=== PATIENT | female | born 1975 | race African-American/Black ===

== ENCOUNTER 2024-10-31 09:06 | Emergency (ER) | payer OTHER ==
[~2024-10-31] VITALS: Ht 162.6 cm; Wt 50.3 kg
[2024-10-31] MEDS: Magnesium 1GM/D5W 100ML PREMIX 100 ML IV SCH (10:00)
[2024-10-31] MEDS: PANTOPRAZOLE 40 MG VIAL IV ONE (10:00)
[2024-10-31] MEDS ORDERED: PANTOPRAZOLE 40 MG VIAL ONE (10:11)
[2024-10-31] MEDS ORDERED: Magnesium 1GM/D5W 100ML PREMIX 200 ML IV ONE (10:11)
[2024-10-31 10:18] LABS: BASOPHILS % (AUTO) 0.4 % (0.0-2.0); EOSINOPHILS # (AUTO) 0.1 K/uL (0.0-0.7); EOSINOPHILS % (AUTO) 1.5 % (0.0-6.0); HEMATOCRIT 21 % (33-45); HEMOGLOBIN 7.5 g/dL (11.5-14.8); LYMPHOCYTES # (AUTO) 0.5 K/uL (0.8-4.8); MEAN CORPUSCULAR HEMOGLOBIN 32 PG (26.0-33.0); MEAN CORPUSCULAR HGB CONC 36 g/dl (31.0-36.0); MEAN CORPUSCULAR VOLUME 90 fL (82-100); MONOCYTES # (AUTO) 0.2 K/uL (0.1-1.30); NEUTROPHILS # (AUTO) 4.2 K/uL (1.8-8.9); NEUTROPHILS % (AUTO) 85.1 % (43.0-81.0); PLATELET COUNT (AUTO) 249 K/uL (150-450); RED BLOOD CELL COUNT(AUTO) 2.32 MIL/uL (4.0-5.2); RED CELL DISTRIBUTION WIDTH 14.9 % (11.5-15.0)
[2024-10-31] MEDS ORDERED: FENT1PAT2 TD (10:18)
[2024-10-31] MEDS ORDERED: HYDR2TAB4 PO (10:18)
[2024-10-31] MEDS ORDERED: FENT1PAT6 TD (10:18)
[2024-10-31 10:44] LABS: INR 1.08 (0.91-1.10); PARTIAL THROMBOPLASTIN TIME 28.4 SEC (24.3-34.3); PROTHROMBIN TIME 11.4 SECS (9.2-11.1)
[2024-10-31 11:08] LABS: CALCIUM, SERUM 8.6 mg/dL (8.5-10.1); CARBON DIOXIDE 25 mmol/L (21-32); CHLORIDE 93 mmol/L (98-107); CREATININE 0.9 mg/dL (0.6-1.3); GLUCOSE 238 mg/dL (74-106); POTASSIUM 3.6 mmol/L (3.5-5.1); SODIUM SERUM 132 mmol/L (136-145); UREA NITROGEN, BLOOD 21 mg/dL (7-18)
[2024-10-31 11:28] LABS: ALANINE AMINOTRANSFERASE 13 U/L (12-78); ALBUMIN 2.9 g/dL (3.4-5.0); ALKALINE PHOSPHATASE 66 U/L (46-116); ASPARTATE AMINOTRANSFERASE 14 U/L (15-37); BILIRUBIN,DIRECT 0.3 mg/dL (0.0-0.2); BILIRUBIN,TOTAL 0.8 mg/dL (0.2-1.0); TOTAL PROTEIN, SERUM 7.1 g/dL (6.4-8.2)
[2024-10-31] MEDS: IV NS 0.9% 1,000 ML BAG IV ONE ×2 (11:29→12:00)
[2024-10-31] MEDS: PIPERACILLIN /TAZOBACTAM 3.375 G in IV D5W 50 ML IV ONE (12:00)
[2024-10-31 12:53] LABS: MAGNESIUM 1.8 mg/dL (1.8-2.4)
[2024-10-31] MEDS: VANCOMYCIN 1 GM in IV D5W 250 ML IV ONE (13:00)
[2024-10-31 16:25] VITALS: BP 92/61; TEMP 97.9; O2SAT 99
[2024-10-31] MEDS ORDERED: IV NS 0.9% 1,000 ML BAG IV ONE (16:30)
== END 2024-10-31 16:24 | disposition short-term general hospital (02) ==
LOC: ER 09:09
DX: K92.2 Gastrointestinal hemorrhage, unspecified (principal); R00.0 Tachycardia, unspecified; R55 Syncope and collapse; R73.9 Hyperglycemia, unspecified; D64.9 Anemia, unspecified; D84.9 Immunodeficiency, unspecified; E86.0 Dehydration; E87.1 Hypo-osmolality and hyponatremia; E88.09 Other disorders of plasma-protein metabolism, not elsewhere classified; G89.29 Other chronic pain; R62.7 Adult failure to thrive; Z88.7 Allergy status to serum and vaccine
CPT/HCPCS: 99291; 74176; 96365; 96367; 96366; 96368; 93005; 71045; 85025; 80048; 87040 ×2; 83605; 80076; 83735; 84100; 84484; 85730; 86850; J3370; J2543; J7060; J2470; J3475; 36415